=== PATIENT | female | born 1960 | race Caucasian/White ===

== ENCOUNTER 2022-06-28 12:39 | Outpatient (CLI) | payer BC, SELFPAY ==
[2022-06-28 15:55] LABS: Chloride* 104 mmol/L (96-114); Potassium* 4.1 mmol/L (3.6-5.1); Sodium* 141 mmol/L (135-149)
[2022-06-28 15:57] LABS: Cholesterol* 221 mg/dL (90-199)
[2022-06-28 15:58] LABS: Blood Urea Nitrogen* 14 mg/dL (7-30); Calcium* 9.6 mg/dL (8.4-10.6); Carbon Dioxide* 30 mmol/L (20-32); Creatinine* 0.7 mg/dL (0.5-1.5); Estimated Glomerular Filt Rate 99 ml/min; Glucose* 86 mg/dL (60-115); Triglycerides* 86 mg/dL (40-149)
[2022-06-28 15:59] LABS: HDL Cholesterol* 91 mg/dL (>=50); LDL Cholesterol Calculated 113 mg/dL (<100); Magnesium* 2.2 mg/dL (1.5-2.6)
[2022-06-28 16:14] LABS: Troponin I* < 0.01 ng/mL (0.01-0.04)
== END 2022-06-28 12:40 | disposition home or self-care (01) ==
PROVIDERS: PCP Nurse Practitioner Family; Visit Provider Nurse Practitioner Family
DX: R00.2 Palpitations (principal); I10 Essential (primary) hypertension; M79.602 Pain in left arm; Z13.6 Encounter for screening for cardiovascular disorders
CPT/HCPCS: 80048; 80061; 83735; 84443; 84484

== ENCOUNTER 2022-07-15 12:40 | Outpatient (CLI) | payer BC, SELFPAY | END 2022-07-15 12:41 | disposition home or self-care (01) | LOC: RAD 12:44 | PROVIDERS: PCP Nurse Practitioner Family; Visit Provider Nurse Practitioner Family | DX: Z86.79 Personal history of other diseases of the circulatory system (principal) | CPT/HCPCS: 93306 ==

== ENCOUNTER 2023-06-02 10:47 | Outpatient (CLI) | payer BC, SELFPAY ==
--- OUTSIDE RECORDS SUMMARY | 2023-06-02 10:53 | XMS_ITS | Clinical Summary ---
Author Name Unknown Organization [facility] Address [address] [place] [address] Care Team Providers Care Remedial Project Manager Name Role Phone Elsewhere, Pcp Primary Care Provider Unavailabl e Source Comments Patient records contain information from all sites at [facility]. For routine questions regarding patient records, call [phone] during business hours, M-F 8:00 AM - 5:00 PM Central Time. Record requests for emergency care only can be directed to [phone] at any time.[facility] Allergies Active Allergy Reactions Criticality Noted Date Comments Lisinopril Cough Medications Medication Sig Dispensed Refills Start Date End Date Status ASPIRIN ORAL Take 1 tablet by mouth daily. 0 04/17/2011 Active biotin 1 mg tablet Take 1 tablet by mouth daily. 0 06/26/2015 Active citalopram hydrobromide (CELEXA ORAL) Take 1 tablet by mouth daily. 0 05/21/2008 Active losartan (COZAAR) 25 mg tablet Take 1 tablet by mouth daily. 0 11/26/2016 Active omega-3s/dha/epa/fish oil (OMEGA 3 ORAL) Take 2 tablets by mouth daily. 0 07/20/2014 Active glucosamine sulfate (GLUCOSAMINE ORAL) Take 1 capsule by mouth daily. 0 05/21/2008 Active HYDROCHLOROTHIAZIDE ORAL Take 1 tablet by mouth daily. 0 05/21/2008 Active lisinopril (PRINIVIL,ZESTRIL) 20 mg tablet Take 1 tablet by mouth daily. 0 04/06/2012 Active MAGNESIUM OXIDE ORAL Take 4 tablets by mouth daily. 0 07/20/2014 Active METOPROLOL SUCCINATE ORAL Take 1 tablet by mouth daily. 0 11/26/2016 Active UNABLE TO FIND daily. Underwood concentrate 0 01/16/2016 Active UNABLE TO FIND 2 (two) times a day. Bio command probiotic 0 01/16/2016 Active CHOLECALCIFEROL, VITAMIN D3, ORAL Take 12 drops by mouth daily. 0 07/20/2014 Active cod liver oil capsule Take 1 capsule by mouth. 0 Active vitamin E,dl-alpha tocopherol, (VITAMIN E, BULK, MISC) Take 1 capsule by mouth. 0 Active ascorbic acid, vitamin C, powder Take 1 tablet by mouth. 0 Active Active Problems Problem Noted Date Diagnosed Date Cardiomyopathy 10/20/2014 Overview: Cardiomyopathy NOS Hypertension 09/19/2011 Dysthymia 04/17/2011 Overview: Dysthymic Disorder Immunizations Name Administration Dates Next Due Td (Adult), adsorbed 06/24/2003 Tdap 07/20/2014 Family History Medical History Relation Name Comments Breast cancer Mother's Sister Per Wanda notes, unknown age Aneurysm Sister 1 Ramona Hypertension Sister 1 Ramona Breast cancer Sister 2 Hypertension Sister 2 Relation Name Status Comments Mother's Sister Sister 1 Ramona Sister 2 Social History Tobacco Use Types Packs/Day Years Used Date Smoking Tobacco: Never Smokeless Tobacco: Never Alcohol Use Standard Drinks/Week Comments Yes 14 (1 standard drink = 0.6 oz pu re alcohol) Nutrition Answer Date Recorded Nutrition: EVOO Fat Source Unknown 07/06 Nutrition: Servings of Fruits/Vegetables per Day Not on file 07/06/2020 Dental Answer Date Recorded Dental: Regular Dentist Unknown 07/07/19 21 Sex and Gender Information Value Date Recorded Sex Assigned at Not on file Gender Identity Not on file Sexual Orientation Not on file Last Filed Vital Signs Vital Sign Reading Time Taken Comments Blood Pressure 141/92 03/01/2021 6:45 PM CDT Pulse 104 03/01/2021 6:45 PM CDT Temperature 36 ??C (96.8 ??F) 03/01/2021 5:04 PM CDT Respiratory Rate 21 03/01/2021 6:45 PM CDT Oxygen Saturation 93% 03/01/2021 6:45 PM CDT Inhaled Oxygen Concentration - - Weight 61 kg (134 lb 7.7 oz) 03/01/2021 5:05 PM CDT Height 162.6 cm (5' 4) 10/01/2018 1:05 PM CDT Body Mass Index 23.08 10/01/2018 1:05 PM CDT Plan of Treatment Health Maintenance Due Date Last Done Comments CT Colonography 1962 Cologuard 1962 HIV Screening 1960 Hepatitis C Screening 1960 Office Visit for Blood Press ure Check / Re-check 1962 Pneumococcal vaccine (0-64 y ears) (1 of 2 - PCV) 01/09/1968 Zoster Vaccines (1 of 2) 01/09/2012 Colonoscopy 02/27/2022 02/27/2017, 12/23/2012 Colorectal Cancer Surveillance 02/27/2022 Creatinine Level (Kidney Fun ction Test) 03/01/2022 03/01/2021, 05/17/2020, 12/06/2019, Additional history exists Potassium Level 03/01/2022 03/01/2021, 05/05, 12/06/2019, Additional history exists Sodium Level 03/01/2022 03/01/2021, 05/05, 12/06/2019, Additional history exists COVID-19 Vaccine (3 - 2022-2 4 season) 2023 09/26/2020, 09/07/2020 Influenza Vaccine (#1) 2023 Depression Screening (Annual PHQ-2) 05/05/2023 Mammogram 06/27/2023 06/27/2022, 0112/2020, 05/27/2019, Additional history exists Fasting Glucose for Diabetes Screening 03/01/2024 03/01/2021, 03/01/2021, 08/21/2015, Additional history exists DTaP,Tdap,and Td Vaccines (2 - Td or Tdap) 07/20/2024 07/20/2014, 06/24/2003, 06/24/2003 Lipid (Cholesterol) Screening 05/17/2025 05/17/2020 Care Teams Remedial Project Manager Relationship Specialty Start Date End Date Elsewhere, Pcp PCP - General Internal Medicine 10/29/21
--- OUTSIDE RECORDS SUMMARY | 2023-06-02 10:54 | XMS_ITS | Encounter Summary ---
Author Name Unknown Organization [facility] Address [address] [place] [address] Care Team Providers Care Probation Officer Name Role Phone Elsewhere, Pcp Primary Care Provider Unavailabl e Reason for Referral * Outpatient (Routine) - Closed Specialty Diagnoses / Procedures Referred By Contact Referred To Contact Gastroenterology and Hepatology Diagnoses Diarrhea Rosmery Blanco, C.N.P. [address] [place] [address] [facility] Referral ID Status Reason Start Date Expiration Date Visits Re quested Visits Authorized [id number] Closed 09/15/2018 09/15/2019 1 1 Encounter Details Date Type Department Care Team (Late st Contact Info) Description 09/15/2018 [facility] [address] [place] [phone] Rosmery Blanco, C.N.P. [address] [place] [address] Diarrhea (Primary Dx) Social History Tobacco Use Types Packs/Day Years Used Date Smoking Tobacco: Never Sex and Gender Information Value Date Recorded Sex Assigned at Not on file Gender Identity Not on file Sexual Orientation Not on file documented as of this encounter Plan of Treatment Scheduled Referrals Name Type Priority Associated Diagnoses Order Schedule Gastroenterology & Hepatology Referral Outpatient Referral Routine Diarrhea Expected: 09/15/2018 (Approximate), Expires: 09/15/2021 documented as of this encounter Visit Diagnoses Diagnosis Diarrhea- Primary documented in this encounter Additional Health Concerns Infection Onset Date Last Indicated Resolved Time COVID19 Pending 03/01/2021 03/01/2021 03/01/2021 6 :52 PM CDT Assessment Noted Time PHQ-9 Depression Total Score: 8 07/21/19 15 3:00 PM CDT documented as of this encounter Care Teams Probation Officer Relationship Specialty Start Date End Date Elsewhere, Pcp PCP - General Internal Medicine 10/29/21 documented as of this encounter
--- OUTSIDE RECORDS SUMMARY | 2023-06-02 10:54 | XMS_ITS | Encounter Summary ---
Author Name Unknown Organization [facility] Address [address] [place] [address] Care Team Providers Care Board Certified Family Physician Name Role Phone Elsewhere, Pcp Primary Care Provider Unavailabl e Reason for Referral * Outpatient (Routine) - Closed Specialty Diagnoses / Procedures Referred By John knight Referred To Contact Diagnoses Screening Mammogram Breast Cancer Procedures BI Breast Screening Bilateral with Tomosynthesis Rosmery Blanco, C.N.P. [address] [place] [address] [facility] Region Referral ID Status Reason Start Date Expiration Date Visits Re quested Visits Authorized [id number] Closed 06/11/2022 06/11/2023 1 1 RRAGE CLERK Reason for Visit * Outpatient (Routine) - Closed Specialty Diagnoses / Procedures Referred By John knight Referred To Contact Diagnoses Screening Mammogram Breast Cancer Procedures BI Breast Screening Bilateral with Tomosynthesis Rosmery Blanco, C.N.P. [address] [place] [address] [facility] Region Referral ID Status Reason Start Date Expiration Date Visits Re quested Visits Authorized [id number] Closed 06/11/2022 06/11/2023 1 1 Encounter Details Date Type Department Care Team (Late st Contact Info) Description 06/27/2022 9:34 AM DEMURRAGE CLERK - 06/27/2022 11:59 PM DEMURRAGE CLERK Hospital Encounter Department of Radiology in [place] [address] [place] [address] Rosmery Blanco C.NYukiP. [address] [place] [phone] Screening Mammogram Breast Cancer Discharge Disposition: Home or Self Care Social History Tobacco Use Types Packs/Day Years [...] on file documented as of this encounter Medications at Time of Discharge Medication Sig Dispensed Refills Start Date End Date ascorbic acid, vitamin C, powder Take 1 tablet by mouth. 0 ASPIRIN ORAL Take 1 tablet by mouth daily. 0 04/17/2011 biotin 1 mg tablet Take 1 tablet by mouth daily. 0 06/26/2015 CHOLECALCIFEROL, VITAMIN D3, ORAL Take 12 drops by mouth daily. 0 07/20/2014 citalopram hydrobromide (CELEXA ORAL) Take 1 tablet by mouth daily. 0 05/21/2008 cod liver oil capsule Take 1 capsule by mouth. 0 glucosamine sulfate (GLUCOSAMINE ORAL) Take 1 capsule by mouth daily. 0 05/21/2008 HYDROCHLOROTHIAZIDE ORAL Take 1 tablet by mouth daily. 0 05/21/2008 lisinopril (PRINIVIL,ZESTRIL) 20 mg tablet Take 1 tablet by mouth daily. 0 04/06/2012 losartan (COZAAR) 25 mg tablet Take 1 tablet by mouth daily. 0 11/26/2016 MAGNESIUM OXIDE ORAL Take 4 tablets by mouth daily. 0 07/20/2014 METOPROLOL SUCCINATE ORAL Take 1 tablet by mouth daily. 0 11/26/2016 omega-3s/dha/epa/fish oil (OMEGA 3 ORAL) Take 2 tablets by mouth daily. 0 07/20/2014 UNABLE TO FIND daily. Underwood concentrate 0 01/16/2016 UNABLE TO FIND 2 (two) times a day. Bio command probiotic 0 01/16/2016 vitamin E,dl-alpha tocopherol, (VITAMIN E, BULK, MISC) Take 1 capsule by mouth. 0 documented as of this encounter Plan of Treatment Not on file documented as of this encounter Procedures Procedure Name Priority Date/Time Associated Diagnosis Comments BI BREAST SCREENING BILATERAL WITH TOMOSYNTHESIS RAD - Routine (most inpatients and all outpatients) 06/27/2022 9:52 AM DEMURRAGE CLERK Screening Mammogram Breast Cancer documented in this encounter Results * BI Breast Screening Bilateral with Tomosynthesis (06/27/2022 9:52 AM DEMURRAGE CLERK) Anatomical Region Laterality Modality Breast, Breast Imaging RST L OS, Breast Imaging ARZ LOS, Breast Imaging FLA LOS Bilateral Mammography 06/27/2022 10:0 3 AM DEMURRAGE CLERK Impressions 06/27/2022 11:55 AM DEMURRAGE CLERK Negative. RECOMMENDATION: ??Annual Screening Mammogram ASSESSMENT: ??BI-RADS: 1: Negative. Narrative 06/27/2022 11:55 AM DEMURRAGE CLERK EXAM: ??BI BREAST SCREENING BILATERAL WITH TOMOSYNTHESIS Current study was evaluated with a Computer Aided Detection (CAD) system. INDICATION: ??Screening mammogram. COMPARISON: ??Prior exam(s) were available and reviewed for comparison. DENSITY: ??d. The breast(s) are extremely dense, which lowers the sensitivity of mammography. FINDINGS: ??No mammographic findings of malignancy. Procedure Note Orestes Cervantes M.D. - 06/27/2022 EXAM: BI BREAST SCREENING BILATERAL WITH TOMOSYNTHESIS Current study was evaluated with a Computer Aided Detection (CAD) system. INDICATION: Screening mammogram. COMPARISON: Prior exam(s) were available and reviewed for comparison. DENSITY: d. The breast(s) are extremely dense, which lowers thesensitivity of mammography. FINDINGS: No mammographic findings of malignancy. IMPRESSION: Negative. RECOMMENDATION: Annual Screening Mammogram ASSESSMENT: BI-RADS: 1: Negative. Rosmery TAYLOR BI PROCEDU RES documented in this encounter Visit Diagnoses Diagnosis Screening Mammogram Breast Cancer documented in this encounter Additional Health Concerns Assessment Noted Time PHQ-9 Depression Total Score: 8 07/21/19 15 3:00 PM CDT documented as of this encounter Care Teams Board Certified Family Physician Relationship Specialty Start Date End Date Elsewhere, Pcp PCP - General Internal Medicine 10/29/21 documented as of this encounter
--- OUTSIDE RECORDS SUMMARY | 2023-06-02 10:54 | XMS_ITS | Encounter Summary ---
Author Name Unknown Organization [facility] Address [address] [place] [address] Care Team Providers Care Plant Breeder Scientist Name Role Phone Elsewhere, Pcp Primary Care Provider Unavailabl e Encounter Details Date Type Department Care Team (Late st Contact Info) Description 03/17/2018 [facility] [address] [place] [phone] Rosmery Blanco, C.N.P. [address] [place] [phone] Hyponatremia (Primary Dx) Social History Tobacco Use Types Packs/Day Years Used Date Smoking Tobacco: Never Sex and Gender Information Value Date Recorded Sex Assigned at Not on file Gender Identity Not on file Sexual Orientation Not on file documented as of this encounter Plan of Treatment Not on file documented as of this encounter Visit Diagnoses Diagnosis Hyponatremia- Primary documented in this encounter Additional Health Concerns Infection Onset Date Last Indicated Resolved Time COVID19 Pending 03/01/2021 03/01/2021 03/01/2021 6 :52 PM CDT Assessment Noted Time PHQ-9 Depression Total Score: 8 07/21/19 15 3:00 PM CDT documented as of this encounter Care Teams Plant Breeder Scientist Relationship Specialty Start Date End Date Elsewhere, Pcp PCP - General Internal Medicine 10/29/21 documented as of this encounter
--- OUTSIDE RECORDS SUMMARY | 2023-06-02 10:54 | XMS_ITS ---
Author Name Unknown Organization [facility] Address [address] [place] [address] Care Team Providers Care Negative Checker Name Role Phone Unavailable Unavailable Unavailable Surgery Details Not on file Complications Check Surgery Details section. Procedure Estimated Blood Loss Check Surgery Details section. Procedure Findings Check Surgery Details section. Procedure Specimens Taken Check Surgery Details section.
--- OUTSIDE RECORDS SUMMARY | 2023-06-02 10:54 | XMS_ITS | Referral Summary ---
Author Name Unknown Organization [facility] Address [address] [place] [address] Care Team Providers Care Feed Mixer Name Role Phone Elsewhere, Pcp Primary Care Provider Unavailabl e Source Comments Patient records contain information from all sites at [facility]. For routine questions regarding patient records, call [phone] during business hours, M-F 8:00 AM - 5:00 PM Central Time. Record requests for emergency care only can be directed to [phone] at any time.[facility] Allergies Active Allergy Reactions Criticality Noted [...] Due Td (Adult), adsorbed 06/24/2003 Tdap 07/20/2014 Social History Tobacco Use Types Packs/Day Years [...] 10/01/2018 1:05 PM CDT Plan of Treatment Not on file Care Teams Feed Mixer Relationship Specialty Start Date End Date Elsewhere, Pcp PCP - General Internal Medicine 10/29/21
--- OUTSIDE RECORDS SUMMARY | 2023-06-02 10:54 | XMS_ITS | Encounter Summary ---
Author Name Unknown Organization [facility] Address [address] [place] [address] Care Team Providers Care Bolter Helper Name Role Phone Elsewhere, Pcp Primary Care Provider Unavailabl e Reason for Visit * Reason Onset Date Comments Dizziness 02/16/2023 Encounter Details Date Type Department Care Team (Late st Contact Info) Description 02/16/2023 Nurse Triage Department of Family Medicine, [facility], in [address] [phone] Lazara Arevalo M.S.N., R.N. Dizziness Social History Tobacco Use Types Packs/Day Years [...] on file documented as of this encounter Miscellaneous Notes * Telephone Encounter - Lazara Arevalo M.S.N., R.N. - 02/16/2023 7:54 AM CDT Chief Complaint / Reason for Call Patient is a 63 y.o. female calling regarding Dizziness. Assessment Concern: Patient reports in the night she has bed spins. She reports today she was in taoist and felt faint. She reports earlier this week pain between shoulder blades. She checked her blood pressure at home and was normal. Present for: lightheadedness today Home cares tried: called nurse line Calling to request: advice The recommended disposition is See a health care provider within 24 hours. Offered to connect patient with scheduling she will wait and contact her primary clinic tomorrow. This RN did stress if symptoms worsen or the pain in shoulder blades comes back to be seen emergently. She did verbalize understanding and agreement Reason for Disposition [1] MODERATE dizziness (e.g., interferes with normal activities) AND [2] has NOT been evaluated by doctor (or SAMPLE CLERK/PA) for this (Exception: Dizziness caused by heat exposure, sudden standing, or poor fluid intake.) Protocols used: Dizziness - [id number] Care Advice Patient/Caregiver understands and will follow care advice?: Yes, able to teach back SEE PCP WITHIN 24 HOURS: * IF OFFICE WILL BE OPEN: You need to be examined within the next 24 hours. Call your doctor (or SAMPLE CLERK/PA) when the office opens and make an appointment. * IF OFFICE WILL BE CLOSED: You need to be seen within the next 24 hours. A clinic or an urgent care center is often a good source of care if your doctor's office is closed or you can't get an appointment. DRINK FLUIDS: * Drink several glasses of fruit juice, other clear fluids or water. * This will improve hydration and blood glucose. * If the weather is hot or you have a fever, make sure the fluids are cold. LIE DOWN AND REST: * Lie down with feet elevated for 1 hour. * This will improve circulation and increase blood flow to the brain. CALL BACK IF: * Passes out (faints) * You become worse documented in this encounter Plan of Treatment Not on file documented as of this encounter Visit Diagnoses Not on filedocumented in this encounter Additional Health Concerns Assessment Noted Time PHQ-9 Depression Total Score: 8 07/21/19 15 3:00 PM CDT documented as of this encounter Care Teams Bolter Helper Relationship Specialty Start Date End Date Elsewhere, Pcp PCP - General Internal Medicine 10/29/21 documented as of this encounter
== END 2023-06-02 10:48 | disposition home or self-care (01) ==
PROVIDERS: PCP Nurse Practitioner Family; Visit Provider Nurse Practitioner Family
DX: Z13.220 Encounter for screening for lipoid disorders (principal); I10 Essential (primary) hypertension; R19.8 Other specified symptoms and signs involving the digestive system and abdomen
CPT/HCPCS: 80053; 80061; 83516; 84443; 85025; 86364

== ENCOUNTER 2023-06-20 07:47 | Outpatient (CLI) | payer BC, SELFPAY ==
--- OUTSIDE RECORDS SUMMARY | 2023-06-20 07:49 | XMS_ITS | Encounter Summary ---
Author Name Unknown Organization [facility] Address [address] [place] [address] Care Team Providers Care Robotic Weld Technician Name Role Phone Elsewhere, Pcp Primary Care Provider Unavailabl e Reason for Referral * Outpatient (Routine) - Closed Specialty Diagnoses / Procedures Referred By Contact Referred To Contact Gastroenterology and Hepatology Diagnoses Diarrhea Rosmery Blanco, C.N.P. [address] [place] [address] [facility] Referral ID Status Reason Start Date Expiration Date Visits Re quested Visits Authorized [id number] Closed 09/15/2018 09/15/2019 1 1 Encounter Details Date Type Department Care Team (Late st Contact Info) Description 09/15/2018 [facility] [address] [place] [phone] Rosmery Blanco, C.N.P. [address] [place] [address] Diarrhea (Primary Dx) Social History Tobacco Use Types Packs/Day Years Used Date Smoking Tobacco: Never Sex and Gender Information Value Date Recorded Sex Assigned at Not on file Gender Identity Not on file Sexual Orientation Not on file documented as of this encounter Plan of Treatment Upcoming Encounters Date Type Department Care Team (Late st Contact Info) Description 06/30/2023 1:00 PM EVENT MGR Appointment Department of Radiology in [address] [phone] Rosmery Blanco C.NAsia. [address] [place] [phone] Discharge Disposition: Home or Self Care Scheduled Referrals Name Type Priority Associated Diagnoses [...] documented as of this encounter Care Teams Robotic Weld Technician Relationship Specialty Start Date End Date Elsewhere, Pcp PCP - General Internal Medicine 10/29/21 documented as of this encounter
--- OUTSIDE RECORDS SUMMARY | 2023-06-20 07:49 | XMS_ITS | Encounter Summary ---
Author Name Unknown Organization [facility] Address [address] [place] [address] Care Team Providers Care Tree Climber Name Role Phone Elsewhere, Pcp Primary Care Provider Unavailabl e Reason for Visit * Reason Onset Date Comments Dizziness 02/16/2023 Encounter Details Date Type Department Care Team (Late st Contact Info) Description 02/16/2023 Nurse Triage Department of Family Medicine, [facility], in [address] [phone] Lazara Arevalo M.S.N., R.N. Dizziness Social History [...] spins. She reports today she was in voodoo and felt faint. She reports earlier this [...] has NOT been evaluated by doctor (or SR. CONSULTANT/PA) for this (Exception: Dizziness caused by heat exposure, sudden standing, or poor fluid intake.) Protocols used: Dizziness - [id number] Care Advice Patient/Caregiver understands and will follow care advice?: Yes, able to teach back SEE PCP WITHIN 24 HOURS: * IF OFFICE WILL BE OPEN: You need to be examined within the next 24 hours. Call your doctor (or SR. CONSULTANT/PA) when the office opens and make an [...] documented in this encounter Plan of Treatment Upcoming Encounters Date Type Department Care Team (Late st Contact Info) Description 06/30/2023 1:00 PM MENTALLY IMPAIRED TEACHER Appointment Department of Radiology in [address] [phone] Rosmery Blanco, C.N.P. [address] [place] [phone] Discharge Disposition: Home or Self Care documented as of this encounter Visit Diagnoses Not on filedocumented in this encounter Additional Health Concerns Assessment Noted Time PHQ-9 Depression Total Score: 8 07/21/19 15 3:00 PM CDT documented as of this encounter Care Teams Tree Climber Relationship Specialty Start Date End Date Elsewhere, Pcp PCP - General Internal Medicine 10/29/21 documented as of this encounter
--- OUTSIDE RECORDS SUMMARY | 2023-06-20 07:49 | XMS_ITS | Referral Summary ---
Author Name Unknown Organization [facility] Address [address] [place] [address] Care Team Providers Care Document Control Supervisor Name Role Phone Elsewhere, Pcp Primary Care Provider Unavailabl e Source Comments Patient records contain information from all sites at [facility]. For routine questions regarding patient records, call [phone] during business hours, M-F 8:00 AM - 5:00 PM Central Time. Record requests for emergency care only can be directed to [phone] at any time.[facility] Allergies Active Allergy Reactions Criticality Noted Date [...] 10/01/2018 1:05 PM CDT Plan of Treatment Upcoming Encounters Date Type Department Care Team (Late st Contact Info) Description 06/30/2023 1:00 PM GUEST RELATION OFFICER Appointment Department of Radiology in [address] [phone] Rosmery Blanco C.NAsia. [address] [place] [phone] Discharge Disposition: Home or Self Care Care Teams Document Control Supervisor Relationship Specialty Start Date End Date Elsewhere, Pcp PCP - General Internal Medicine 10/29/21
--- OUTSIDE RECORDS SUMMARY | 2023-06-20 07:49 | XMS_ITS | Clinical Summary ---
Author Name Unknown Organization [facility] Address [address] [place] [address] Care Team Providers Care Speed Belt Sander Tender Name Role Phone Elsewhere, Pcp Primary Care Provider Unavailabl e Source Comments Patient records contain information from all sites at [facility]. For routine questions regarding patient records, call [phone] during business hours, M-F 8:00 AM - 5:00 PM Central Time. Record requests for emergency care only can be directed to [phone] at any time.[facility] Allergies Active Allergy Reactions Criticality Noted [...] st Contact Info) Description 06/30/2023 1:00 PM CHURCH COMMUNICATIONS ADMINISTRATOR Appointment Department of Radiology in [address] [phone] Rosmery Blanco C.N.P. [address] [place] [phone] Discharge Disposition: Home or Self Care Health Maintenance Due Date Last Done Comments [...] Screening (Annual PHQ-2) 05/05/2023 Mammogram 06/27/2023 06/27/2022, 0 12/2020, 05/27/2019, Additional history exists Fasting Glucose for Diabetes Screening 03/01/2024 03/01/2021, 03/01/2021, 08/21/2015, Additional history exists DTaP,Tdap,and Td Vaccines (2 - Td or Tdap) 07/20/2024 07/20/2014, 06/24/2003, 06/24/2003 Lipid (Cholesterol) Screening 05/17/2025 05/17/2020 Care Teams Speed Belt Sander Tender Relationship Specialty Start Date End Date Elsewhere, Pcp PCP - General Internal Medicine 10/29/21
--- OUTSIDE RECORDS SUMMARY | 2023-06-20 07:49 | XMS_ITS ---
Author Name Unknown Organization [facility] Address [address] [place] [address] Care Team Providers Care Green Building Materials Distributor Name Role Phone Unavailable Unavailable Unavailable Surgery Details Not on file Complications Check Surgery Details section. Procedure Estimated Blood Loss Check Surgery Details section. Procedure Findings Check Surgery Details section. Procedure Specimens Taken Check Surgery Details section.
--- OUTSIDE RECORDS SUMMARY | 2023-06-20 07:49 | XMS_ITS | Encounter Summary ---
Author Name Unknown Organization [facility] Address [address] [place] [address] Care Team Providers Care Training Representative Name Role Phone Elsewhere, Pcp Primary Care Provider Unavailabl e Reason for Referral * Outpatient (Routine) - Closed Specialty Diagnoses / Procedures Referred By John knight Referred To Contact Diagnoses Screening Mammogram Breast Cancer Procedures BI Breast Screening Bilateral with Tomosynthesis Rosmery Blanco, C.N.P. [address] [place] [address] [facility] Region Referral ID Status Reason Start Date Expiration Date Visits Re quested Visits Authorized [id number] Closed 06/11/2022 06/11/2023 1 1 SERVICE COUNTER CLERK Reason for Visit * Outpatient (Routine) - Closed Specialty Diagnoses / Procedures Referred By John knight Referred To Contact Diagnoses Screening Mammogram Breast Cancer Procedures BI Breast Screening Bilateral with Tomosynthesis Rosmery Blanco, C.N.P. [address] [place] [address] [facility] Region Referral ID Status Reason Start Date Expiration Date Visits Re quested Visits Authorized [id number] Closed 06/11/2022 06/11/2023 1 1 Encounter Details Date Type Department Care Team (Late st Contact Info) Description 06/27/2022 9:34 AM FOOD SERVICE COUNTER CLERK - 06/27/2022 11:59 PM FOOD SERVICE COUNTER CLERK Hospital Encounter Department of Radiology in [place] [address] [place] [address] Rosmery Blanco C.NYukiP. [address] [place] [phone] Screening Mammogram Breast Cancer Discharge Disposition: Home [...] st Contact Info) Description 06/30/2023 1:00 PM FOOD SERVICE COUNTER CLERK Appointment Department of Radiology in [address] [phone] Rosmery Blanco C.NYukiP. [address] [place] [phone] Discharge Disposition: Home or Self Care documented as of this encounter Procedures Procedure Name Priority Date/Time Associated Diagnosis Comments BI BREAST SCREENING BILATERAL WITH TOMOSYNTHESIS RAD - Routine (most inpatients and all outpatients) 06/27/2022 9:52 AM FOOD SERVICE COUNTER CLERK Screening Mammogram Breast Cancer documented in this encounter Results * BI Breast Screening Bilateral with Tomosynthesis (06/27/2022 9:52 AM FOOD SERVICE COUNTER CLERK) Anatomical Region Laterality Modality Breast, Breast Imaging RST L OS, Breast Imaging ARZ LOS, Breast Imaging FLA LOS Bilateral Mammography 06/27/2022 10:0 3 AM FOOD SERVICE COUNTER CLERK Impressions 06/27/2022 11:55 AM FOOD SERVICE COUNTER CLERK Negative. RECOMMENDATION: ??Annual Screening Mammogram ASSESSMENT: ??BI-RADS: 1: Negative. Narrative 06/27/2022 11:55 AM FOOD SERVICE COUNTER CLERK EXAM: ??BI BREAST SCREENING BILATERAL WITH [...] documented as of this encounter Care Teams Training Representative Relationship Specialty Start Date End Date Elsewhere, Pcp PCP - General Internal Medicine 10/29/21 documented as of this encounter
--- OUTSIDE RECORDS SUMMARY | 2023-06-20 07:49 | XMS_ITS | Encounter Summary ---
Author Name Unknown Organization [facility] Address [address] [place] [address] Care Team Providers Care Dump Truck Driver Name Role Phone Elsewhere, Pcp Primary Care Provider Unavailabl e Encounter Details Date Type Department Care Team (Late st Contact Info) Description 03/17/2018 [facility] [address] [place] [phone] Rosmery Blanco, C.N.P. [address] [place] [phone] Hyponatremia (Primary Dx) Social History Tobacco Use Types Packs/Day Years Used Date Smoking Tobacco: Never Sex and Gender Information Value Date Recorded Sex Assigned at Not on file Gender Identity Not on file Sexual Orientation Not on file documented as of this encounter Plan of Treatment Upcoming Encounters Date Type Department Care Team (Late st Contact Info) Description 06/30/2023 1:00 PM INSPECTOR CASING Appointment Department of Radiology in [address] [phone] Rosmery Blanco, C.N.P. [address] [place] [phone] Discharge Disposition: Home or Self Care documented as of this encounter Visit Diagnoses Diagnosis Hyponatremia- Primary documented in this encounter Additional Health Concerns Infection Onset Date Last Indicated Resolved Time COVID19 Pending 03/01/2021 03/01/2021 03/01/2021 6 :52 PM CDT Assessment Noted Time PHQ-9 Depression Total Score: 8 07/21/19 15 3:00 PM CDT documented as of this encounter Care Teams Dump Truck Driver Relationship Specialty Start Date End Date Elsewhere, Pcp PCP - General Internal Medicine 10/29/21 documented as of this encounter
== END 2023-06-20 07:48 | disposition home or self-care (01) ==
LOC: RAD 07:47
PROVIDERS: PCP Nurse Practitioner Family; Visit Provider Internal Medicine
DX: Z86.79 Personal history of other diseases of the circulatory system (principal); I34.0 Nonrheumatic mitral (valve) insufficiency; I35.1 Nonrheumatic aortic (valve) insufficiency
CPT/HCPCS: 93306

== ENCOUNTER 2023-06-27 07:03 | Outpatient (CLI) | payer BC, SELFPAY ==
--- NOTE | 2023-06-27 07:15 | US_ITS ---
Patient: SHARDA MIKE Facility:?[facility] Patient ID:?[id number] Site Patient ID:?[id number]. Site :?[id number] Study:?US-Pelvis -06/27/2023 7:52:23 AM Ordering Physician:VANESSA HUNG Final Report: CLINICAL HISTORY: PELVIC PAIN, ? ENLARGEMENT OF OVARY ON PHYSICAL EXAM TECHNIQUE: 2D renteria scale and color Doppler images were acquired of the pelvis using a transvaginal approach. FINDINGS: The uterus is absent. The ovaries are not visualized. The patient states that 1 or both of the ovaries may have been previously removed. No pelvic free fluid or mass. IMPRESSION: No suspicious findings on ultrasound. If concern persists would consider MRI. Dictated by Josh Reece MD @ 06/27/2023 11:05:21 AM Signed by:?Josh Reece MD @06/27/2023 11:05:21 AM (Electronic Signature)
== END 2023-06-27 07:04 | disposition home or self-care (01) ==
PROVIDERS: PCP Nurse Practitioner Family; Visit Provider Obstetrics & Gynecology
DX: R10.2 Pelvic and perineal pain (principal)
CPT/HCPCS: 76830

== ENCOUNTER 2024-09-06 13:39 | Outpatient (CLI) | payer BC, SELFPAY | END 2024-09-06 13:40 | disposition home or self-care (01) | LOC: RAD 13:40 | PROVIDERS: PCP Nurse Practitioner Family; Visit Provider Internal Medicine | DX: I50.9 Heart failure, unspecified (principal) | CPT/HCPCS: 80053; 80061; 82306; 85025; 93306 ==